=== PATIENT | male | born 1990 | race Two or more races ===

== ENCOUNTER 2018-02-21 05:35 | Emergency (ER) | payer BC, OTHER ==
[2018-02-21] MEDS: SOD CHLORIDE 0.9% 1,000 ML IV (06:39)
[2018-02-21] MEDS: HYDROmorphONE 1 MG/ML SYG IV (06:39)
[2018-02-21] MEDS: DIPHENHYDRAMINE 50 MG INJ IV (06:39)
[2018-02-21] MEDS: PROCHLORPERAZINE 10 MG INJ IV (06:45)
== END 2018-02-21 08:08 | disposition home or self-care (01) ==
LOC: FTE 05:35
DX: R51 Headache (principal); R40.2142 Coma scale, eyes open, spontaneous, at arrival to emergency department; R40.2362 Coma scale, best motor response, obeys commands, at arrival to emergency department; R40.2252 Coma scale, best verbal response, oriented, at arrival to emergency department; F17.210 Nicotine dependence, cigarettes, uncomplicated
CPT/HCPCS: 96361; 96374; 96375; 99284-25